=== PATIENT | male | born 2005 | race Caucasian/White ===

== ENCOUNTER → 2024-02-03 08:15 | Outpatient (BNV) | payer OTHER, SELFPAY | PROVIDERS: Visit Provider Psychiatry & Neurology Psychiatry | DX: F34.89 Other specified persistent mood disorders (principal); F60.3 Borderline personality disorder; F84.9 Pervasive developmental disorder, unspecified; F90.1 Attention-deficit hyperactivity disorder, predominantly hyperactive type | CPT/HCPCS: 90792; 99213; 99214; 99499 ==

== ENCOUNTER 2024-02-06 14:11 | Emergency (ER) | payer OTHER, SELFPAY ==
[2024-02-06 14:13] VITALS: BP 119/69; PULSE 83; RESP 18; TEMP 36.8; O2SAT 100; BMI 18.2
--- NOTE | 2024-02-06 14:29 | ED.GENADULT ---
HPI - General Adult General Chief complaint: Psychiatric Symptoms Stated complaint: SI Time Seen by Provider: 02/06/24 14:29 Source: patient Mode of arrival: ambulatory Limitations: no limitations History of Present Illness ED Provider: Annalisa Petit PA-C HPI narrative: Patient is a 18 year old assigned male at with a history of BERNICE presenting to the emergency department today with suicidal ideation and no plan. Patient states that he has been having thoughts of hurting himself but does not have a specific plan at this time. Patient denies any dizziness, lightheadedness, abdominal pain, nausea, vomiting, fever, chills, blurry vision, double vision, loss of vision, chest pain, difficulty breathing, shortness of breath, back pain, night sweats, pain with urination, increased urinary frequency, increased urinary urgency, blood in his urine or stool, syncope or a near syncopal episode, recent trauma or falls, bowel incontinence, bladder incontinence, or any other complaints at this time. Relieving factors: none Exacerbating factors: none Associated symptoms: denies other symptoms Treatments prior to arrival: none Related Data Previous Rx's ?Medication ?Instructions ?Recorded guanfacine 1 mg tablet,extended 1 mg PO QPM #20 tabs 02/03/24 release 24 hr Allergies Allergy/AdvReac Type Severity Reaction Status Date / Time No Known Allergies Allergy Verified 02/06/24 14:16 Review of Systems Constitutional: Constitutional: Reports no additional constitutional complaints, Denies chills, Denies fever(s) and Denies night sweats Eyes: Eyes: Reports no additional eye complaints, Denies blurry vision, Denies change in vision, Denies diplopia, Denies eye discharge, Denies loss of vision and Denies eye pain ENT: Denies dizziness Cardiovascular: Cardiovascular: Reports no additional cardiovascular complaints, Denies chest pain, Denies lightheadedness, Denies Loss of Consciousness and Denies dyspnea Respiratory: Respiratory: Reports no additional respiratory complaints and Denies dyspnea Gastrointestinal: Gastrointestinal: Reports no additional gastrointestinal complaints, Denies abdominal pain, Denies melena, Denies hematochezia, Denies change in bowel habits and Denies change in stool character Genitourinary: Genitourinary: Reports no additional male genitourinary complaints, Denies hematuria, Denies oliguria, Denies difficulty urinating, Denies dysuria, Denies urinary frequency, Denies urinary hesitancy, Denies urinary incontinence and Denies urinary urgency Musculoskeletal: Musculoskeletal: Reports no additional musculoskeletal complaints, Denies numbness and Denies tingling Neurologic: Denies dizziness, Denies loss of vision, Denies numbness and Denies tingling Psychiatric: Psychiatric: Denies homicidal ideation and Reports suicidal ideation Endocrine: Endocrine: Reports no additional endocrine complaints Hematologic/Lymphatic: Hematologic/Lymphatic: Reports no additional hematologic/lymphatic complaints Allergic/Immunologic: Allergic/Immunologic: Reports no additional allergic/immunologic complaints [facility] Past Medical History Attestation statement: The following information was validated with the patient. Source: old records reviewed and nursing notes reviewed Medical History No known health problems Social History Social History Household Members: Family Alcohol intake: never Patient Tobacco Use Status: Never used Tobacco Smoked in Last 30 Days: No Advance Directives: No Advance Directives Information Provided: No Do you have a plan to hurt others: No Plan Physical Exam ED Vital Signs: Vital Signs - 24 hr 02/06/24 14:13 Temperature 98.3 F Pulse Rate 83 Respiratory Rate 18 Blood Pressure 119/69 Pulse Oximetry 100 Oxygen Delivery Method Room Air BMI result Body Mass Index 18.2 Const General: cooperative, no acute distress, alert and awake Nutritional Appearance: well nourished Orientation/consciousness: patient oriented x3 Limitations: no limitations HENMT Head: Yes normal to inspection and Yes atraumatic Ears: hearing grossly normal bilaterally and external ears normal General nose exam: Normal external nose present, no nasal discharge noted and no epistaxis Face and sinus: Yes normal facial exam, No abrasion and No laceration Mouth: Normal oral and palatal mucosa present, no drooling and no muffled voice Eyes General: appearance normal, both eyes and all related structures Periorbital: periorbital findings normal Eyelids: Yes eyelids normal Conjunctivae: conjunctivae normal Pupils: Equal, round and reactive pupils present EOM: EOMs intact bilaterally Neck Neck: Yes normal visual inspection, Yes full ROM and Yes no lymphadenopathy Chest Chest palpation & inspection: normal inspection of the chest Resp Effort & Inspection: normal respiratory effort and able to speak in complete sentences GI Inspection: Yes normal to inspection Neuro General: patient oriented x3 and moves all extremities Cranial nerves: Yes Equal, round and reactive pupils present Cognition (Neuro): normal cognition Extrem General: Yes normal to inspection, Yes full ROM and Yes capillary refill normal Psych Appearance: grossly normal Mental Status: mental status grossly normal Affect: Sad affect present Attitude: Guarded attititude/behavior present Thought content: Suicidality present Medical Decision Making Medical Decision Making MDM Narrative: Patient is a 18 year old assigned male at with a history of BERNICE presenting to the emergency department today with suicidal ideation and no plan. Patient's physical exam was as noted in the physical exam portion of this note. Patient's blood work was unremarkable. Patient's urine showed no acute process. CARE team evaluated the patient who recommended discharge and continuation of his partial hospitalization program. I explained my physical exam findings as well as all test results to the patient. I answered all questions asked by the patient. I stressed the importance of the patient taking his medication as directed (either prescribed or as the over the counter packaging recommends). I stressed the importance of the patient following up with his primary care provider. I stressed the importance of the patient returning to the emergency department immediately if his symptoms were to worsen or if he were to develop any dizziness, shortness of breath, difficulty breathing, chest pain, blurry vision, loss of vision, nausea, vomiting, abdominal pain, fever, chills, back pain, or any other complaints. Patient verbalized agreement and understanding with this treatment plan and discharge. Differential Diagnosis Differential Diagnoses: The differential diagnosis associated with the presentation includes Depression Admission/Observation Consideration of admission/observation: Escalation of care including admission/observation considered Patient would have been admitted to the hospital had his work up had any findings where hospital admission was appropriate and his clinical presentation warranted hospital admission. Consult Healthcare Provider Management of the patient was discussed with: Behavioral Health Provider (spoke with the CARE team as noted in the MDM Rationale portion of this note.) Lab Data [facility] Lab Attestation statement: I reviewed the patient's lab results. My interpretation of these results are in the MDM Rationale portion of this note. 02/06/24 14:26 02/06/24 14:26 Labs: Lab Results 02/06/24 Range/Units 14:26 WBC 9.2 (4.8-10.8) X10*3/uL RBC 4.78 (4.60-5.80) X10*6/uL Hgb 14.8 (14.0-18.0) g/dl Hct 43.0 (42.0-52.0) % MCV 90.0 (80.0-98.0) fL MCH 31.0 (27.0-33.0) pg MCHC 34.4 (31.0-36.0) g/dl RDW 12.2 (11.0-16.0) % Plt Count 256 (160-400) X10*3/uL MPV 10.4 (9.4-12.4) fL Immature Gran % (Auto) 0.3 (0.0-0.4) % Neut % (Auto) 63.2 (45-73) % Lymph % (Auto) 25.6 (20-40) % Lawrence % (Auto) 8.8 (2-11) % Eos % (Auto) 1.6 (0-4) % Baso % (Auto) 0.5 (0-2) % Lymph # (Auto) 2.4 (1.2-4.9) X10*3/uL Lawrence # (Auto) 0.8 (0.1-1.2) X10*3/uL Eos # (Auto) 0.2 (0.0-0.4) X10*3/uL Baso # (Auto) 0.1 (0.0-0.2) X10*3/uL Abs Immat Gran (auto) 0.03 (0.00-0.03) X10*3/uL Absolute Neuts (auto) 5.8 (2.0-8.3) x10*3/uL Absolute Nucleated RBC 0.000 (0.0-0.012) X10*3/uL Nucleated RBC % (auto) 0.0 (0.0-0.2) /100WBC Sodium 141 (135-145) mmol/L Potassium 4.0 (3.3-5.1) mmol/L Chloride 104 (96-108) mmol/L Carbon Dioxide 31 H (22-29) mmol/L Anion Gap 10 L (12-20) BUN 10 (9-16) mg/dL Creatinine 0.86 (0.5-1.4) mg/dL Estim Creat Clear Calc 108.1 Estimated GFR > 60 Random Glucose 81 (60-115) mg/dL Calcium 9.8 (8.4-10.2) mg/dL Total Bilirubin 0.3 (0.0-1.0) mg/dL AST 16 (5-37) U/L ALT 11 (0-40) U/L Alkaline Phosphatase 92 (39-117) U/L Total Protein 7.5 (6.5-8.0) g/dL Albumin 4.5 (3.5-5.0) g/dL Urine Color Yellow Urine Appearance Clear Urine pH 6.5 (5.0-9.0) Ur Specific [place] 1.025 (1.005-1.025) Urine Protein Negative (Neg-Trace) mg/dL Urine Glucose (UA) Negative (Negative) mg/dL Urine Ketones Trace (Negative) mg/dL Urine Blood Negative (Negative) Urine Nitrite Negative (Negative) Ur Leukocyte Esterase Negative (Negative) Discharge Plan Discharge Clinical Impression: Depression Patient Disposition: Home, Self-Care Instructions: Depression (DC) Additional Instructions: Follow up with the partial program as instructed by the CARE team. Follow up with your primary care provider. Return to the emergency department immediately if your symptoms worsen or if you develop any dizziness, shortness of breath, difficulty breathing, chest pain, blurry vision, loss of vision, nausea, vomiting, abdominal pain, fever, chills, back pain, or any other complaints. [facility]: [address], [place] [id number] Walk in hours from 10am - 12pm Open from 10am - 12pm [facility] Crisis Services: [address] [place] [address] Walk in hours from 10am - 12pm Open 23/12 [facility]: [address] [place] [address] [address] [place] [id number] Hours: M-F 8am to 8pm Friday and Friday 9am to 5pm Prescriptions: No Action guanfacine 1 mg tablet extended release 24 hr 1 mg PO QPM Qty: 20 0RF Referrals: Manan Farr MD [Primary Care Provider] - Interventions: [place]-Suicide Risk Severity Scale Last Done: 02/06/24 15:02 Print Language: Mohawk
[2024-02-06 14:30] LABS: MANUAL DIFF FLAG NO
[2024-02-06 14:33] LABS: Appearance Urine Clear; Color Urine Yellow; Glucose Urine UA Negative (Negative); Leukocyte Esterase Urine Negative (Negative); Nitrite Urine Negative (Negative); PH 6.5 (5.0-9.0); Specific Gravity - Urine 1.025 (1.005-1.025); Urine Blood Negative (Negative); Urine Ketones Trace mg/dL (Negative); Urine Protein Negative (Neg-Trace)
[2024-02-06 14:34] LABS: Basophils Absolute Auto 0.1 X10*3/uL (0.0-0.2); Basophils Percent Auto 0.5 % (0-2); Eosinophils Absolute Auto 0.2 X10*3/uL (0.0-0.4); Eosinophils Percent Auto 1.6 % (0-4); Hemoglobin 14.8 g/dl (14.0-18.0); Imm Gran Abs Auto 0.03 X10*3/uL (0.00-0.03); Imm Gran Pct Auto 0.3 % (0.0-0.4); Lymphocytes Absolute Auto 2.4 X10*3/uL (1.2-4.9); Lymphocytes Percent Auto 25.6 % (20-40); Mean Corpuscular HGB Conc 34.4 g/dl (31.0-36.0); Mean Platelet Volume 10.4 fL (9.4-12.4); Monocytes Absolute Auto 0.8 X10*3/uL (0.1-1.2); Monocytes Percent Auto 8.8 % (2-11); Neutrophils Absolute Auto 5.8 x10*3/uL (2.0-8.3); Neutrophils Percent Auto 63.2 % (45-73); Platelet Count 256 X10*3/uL (160-400); Red Blood Count 4.78 X10*6/uL (4.60-5.80); Red Cell Distribution Width 12.2 % (11.0-16.0); White Blood Count 9.2 X10*3/uL (4.8-10.8)
[2024-02-06 14:53] LABS: Alanine Aminotransferase 11 U/L (0-40); Albumin Level 4.5 g/dL (3.5-5.0); Alkaline Phosphatase 92 U/L (39-117); Anion Gap 10 (12-20); Aspartate Amino Transferase 16 U/L (5-37); Bilirubin Total 0.3 mg/dL (0.0-1.0); Blood Urea Nitrogen 10 mg/dL (9-16); Calcium 9.8 mg/dL (8.4-10.2); Carbon Dioxide 31 mmol/L (22-29); Chloride 104 mmol/L (96-108); Creatinine Clr Calc Pharmacy 108.1; Estimated Glomerular Filt Rate > 60; Glucose Random 81 mg/dL (60-115); Sodium 141 mmol/L (135-145); Total Protein 7.5 g/dL (6.5-8.0)
[2024-02-06 15:48] VITALS: BP 119/69; PULSE 83; RESP 18; TEMP 36.8; O2SAT 100
== END 2024-02-06 15:49 | disposition home or self-care (01) ==
PROVIDERS: Emergency Provider Emergency Medicine Emergency Medical Services; PCP Pediatrics
DX: F32.A Depression, unspecified (principal); R45.851 Suicidal ideations; F41.8 Other specified anxiety disorders; F60.3 Borderline personality disorder; F84.9 Pervasive developmental disorder, unspecified; Z86.59 Personal history of other mental and behavioral disorders; Z79.899 Other long term (current) drug therapy
CPT/HCPCS: 36415; 80053; 81003; 85025; 99284; 99285; S9485

== ENCOUNTER 2024-02-16 09:00 | Outpatient (RCR) | payer OTHER, SELFPAY ==
[2024-02-03 09:33] VITALS: BP 103/70; PULSE 91; TEMP 36.9
[2024-02-03 09:36] VITALS: BMI 18.2
--- NOTE | 2024-02-03 10:12 | PC.ADMIT ---
Patient is a 18 year old male who was referred to [facility] by crisis who evaluated him after self presenting to the [facility] office secondary to increased anxiety and depression. According to records patient's boyfriend of 4 months broke up with him thus patient reportedly took pills from his fathers girlfriend and called his boyfriend and the boyfriend notified Erick's parents who took the pills. Patient has a history of separation anxiety. Patient is hopeful that he will be getting back together with his boyfriend. Patient has his two year liberal arts degree and is currently taking nursing classes however does not know what he wants to do career [place]. 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 Patient lives part-time with both his mother and father who are . Patient is alert and oriented x4. Calm and cooperative. His thoughts are clear and logical. He presented with depressed mood and anxious affect. Denied SI. He was given a copy of his safety plan if needed. He is not on any psychotropic medications at this time. Stated in the past he was on a psychotropic medication for a week however could not remember the name of it. Patient stated he has tried marijuana about 4 times and denied any other substance use including alcohol.
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
--- NOTE | 2024-02-05 11:50 | HO.PHP ---
Pt left group 1 at about 10:00 and did not tell staff he was leaving. This t/w reached out to the team via text, but this machine sign writer observed him on the telephone right outside the entrance through the window. He didd not return to group 2. He was called multiple times, messages left. His emergency contact was called twice with no ability to receive voicemails. His mother, Nancy, contacted the program nurse Lauren, about his whereabouts, and provided a bit of historical information on this presentation. She was advised to get a hold of him to contact the program about his status in the program going forward.
--- NOTE | 2024-02-05 11:51 | PC.NURSE ---
Erick left the first group and was seen on his phone outside of the group. Staff went to look for him however he left the program without notifying staff. Staff left messages on Gianluca's voicemail to call us. His mother Nancy called and stated Gianluca contacted her via text and asked her to call us to let us know that he felt too anxious to be in the program and was not able to let staff know that he was leaving the program. He told his mother he was on his way to [place] to visit his boyfriend. His mother stated that Gianluca and his boyfriend would visit with each other often during the summer going to each others homes. She stated she let Luz father, who is a [place] police sergeant, know that Gianluca left to see his boyfriend in [place]. She stated his father has seen his license plate on the highway. His mother stated she thinks it would be helpful if Gianluca stayed in the program. I asked her to speak to Gianluca and ask him if he is planning on continuing the program. She stated she would call him and let us know. She stated he is fixated on the relationship with the boyfriend and has attachment issues. I asked her if he made any suicidal statements to her and she stated he did not.
--- NOTE | 2024-02-05 15:09 | HO.PHP ---
Client's case has been opened and reviewed in team.
--- NOTE | 2024-02-05 15:16 | PC.NURSE ---
Erick's ex-boyfriend who goes to college in [place] called me from college campus and stated that Erick is with him and threatening to kill himself if they can't be together. He stated he did not know what to do. He also stated Erick does not want him to be on the phone right now. I advised him to call or bring Erick to campus police. He agreed and stated he is going to call them now. He also stated he spoke to Erick's parents as well. PHP manager transmission Tuyet Reyes was present during the phone call.
--- NOTE | 2024-02-05 15:29 | PC.NURSE ---
I spoke to Erick's mother who is aware that Erick is with Kaleb his EX-boyfriend and is threatening to kill himself if they can not be together. She stated she had spoke to Kaleb she and also advised him to call campus police for help.
--- NOTE | 2024-02-06 11:22 | HO.PHP ---
After reviewing the treatment plan, Erick asked a question in regards to possibly needing a higher level of support because he is uncertain to if [facility] is going to be able to help him with where he is currently at. [facility] staff member informed Erick that a higher level of support would be inpatient level of care. Erick disclosed that he would be open to going to inpatient but would like to further explore. PHP staff member was receptive and assessed why Erick feels he needs a higher level of care. Erick shared that yesterday was challenging for him, which he wanted to harm himself. PHP staff member asked him what stopped him from acting on his thoughts yesterday. Erick disclosed that he was emotionally exhausted and was too tired to even think of a plan. Erick did express having concerns with the weekend approaching and not having a structured scheduled. [facility] staff member validated his concerns and explored if Erick has any plans or intent. Erick shared that he feels that his father was worried about him doing something to the car but Erick mentioned that he doesn't not want to have a car and he also does not like blood so he would never act on anything such as cutting or anything that involves blood. Erick also voiced that he has had thoughts about hanging himself but doesn't know where he would do that, and he has had thoughts about taking medication but he doesn't want a painful . Erick said therefore he has no plan or intent or means to anything. PHP staff member was receptive and informed him that he would be meeting with Dr. Quintero later in the day and she will further explore if she feels he needs to be assessed by the care team. Erick was receptive. PHP staff member and Erick engaged in conversation around his relationship and how it has been affecting him. Erick talked about how he has separation anxiety and being away from him is challenging and he feels if he gives his ex partner space, then he really is going to want to fully separate. Erick talked about how his anxiety is increasing and how he is losing a sense of control over the situation. PHP staff member and Erick engaged in problem solving around what he can currently control in this moment. Erick voiced that he struggles to identify this because he puts his all into relationship and has lost a sense of identity. PHP staff member engaged in reflective listening and provided Erick with support as needed. Erick was able to return back to group and is awaiting to be seen by Dr. Quintero.
--- NOTE | 2024-02-06 12:20 | P.PNPSP_ITS ---
Subjective Subjective Date of Service: 02/06/24 Reason For Visit: anxiety,depression Interim History: Patient seen for follow-up in light of concerning reports from patient's boyfriend, parents. Patient updated senior technical writer on yesterday's developments which including impulsively leaving program and driving out to see his BF in [place], compelled by fears of abandonment and other relationship anxieties. He spoke openly, earnestly and in great detail about these events. Conveys a high level of emotional instability, high reactivity, and was forthcoming about the emotional neediness and clinginess. He recognizes now that he is calmer today, that the reassurance he was seeking, pleading and demanding from his BF was probably not fair or reasonable, however yesterday in the throws of desperation he made several conditional suicidal statements (threatening to harm himself if they broke up) the BF contacted campus security. Even after they both spoke with security and were (his BF returned to his dorm and patient was encouraged to return home) patient returned to campus an hour later to see BF who did allow him in and had slightly more agreeable parting/closure to their conversation and in fact remained on the phone with patient for the entirety of his drive back home. He had maintained communication with his parents yesterday throughout this ordeal, looking for emotional support and updating them on developments. He says sadly this is how I've always been in relationships...I have a hard time trusting and need constant reassurance which usually ends up being too much of a burden to them . Today he presents as rather bright, hyperthymic (similar to his initial pr esentation with me). He is overly detailed and highly energetic and talkative but is not found to be pressured or disorganized. No FOI/EDITH. Sleep regularly, appetite is fine , energy is stable. He reports his mood as a little sad that we decided to 'take a break' but says he is trying to remain optimistic they will remain together. He denies having any suicidal thoughts and says he regrets that he gets lets things get so blown out of proportion. He recognizes that his behaviors can be cooercive and even manipulative (inge when he is making suicidal threats) but says that in the moment they feel true. He has long-standing issues with mood dysregulation which he sees as almost entirely provoked by external factors (usually relationship stressors) and otherwise denies any history of depressive or manic episodes. Denies any issues with insomnia or high risk taking behaviors outside of his impulsive behaviors driven by desperation for connection and reassurance from a partner. He denies any substance use, no hx of promiscuous behaviors or other activities that would put him unnecessarily in harms way. Nonetheless, given his high level of impulsivity, especially in light of concerning behaviors over the past 24 hours (making suicidal statements yesterday that saida concern from loved ones as well as prompting an assessment by campus security), understandably we are concerned for his safety and feel a crisis evaluation is warranted. I doubt, given his current presentation, that he will be deemed IPLOC however given how easily he is provoked and dysregulated it might be helpful to connect with Crisis and be on their radar should patient have any issues over the weekend. Patient agrees this seems sensible, was readily agreeable to be evaluated in ED this evening, and if he is discharged from the ED and returns home, he plans to take it easy this weekend . He says he wont be going to [facility] he knows he put a lot of stress on his BF and says he and BF agreed to speak by phone on Friday and that he is satisfied with this plan. Medication Compliance: Yes Side effects from medications: No Attending Groups: Yes Review of Systems Acute medical concerns: No Mental Status Exam Mental Status Exam Narrative: Alert, oriented, in no acute distress. Energetic, fidgeting, fully cooperative, engaged and well-related. Good eye contact. Mood a little sad . Affect variable, bright, anxious with minimal range, no lability or irritability noted during our meeting. Speech is rapid, high prosody, normal volume, abundant but not pressured. Expansive, circumstantiality, but coherent, no evidence of thought disorder, no FOI or EDITH. Thought content almost exclusively related to relationship stressors, high emotionality, unstable personality conflicts, feelings of helplessness and poor self esteem issues. Preoccupied with his standing in the relationship. High impulsivity and conditional SI threats, but says he currently denies any feelings of hopelessness or SI. Denies any aggressive ideation or HI. No paranoia or delusional content elicited. Distractible but self redirects and able to attend to conversation. Insight and judgment - fair-good. Diagnostics Vital Signs (24Hr): BMI result Body Mass Index 18.2 Assessment & Plan Assessment & Plan (1) Other specified persistent mood disorders: Status: Acute Code(s): F34.89 - Other specified persistent mood disorders Assessment and Plan: mood dysregulation r/o Cyclothymia vs BPII vs other reactive depression/adjustment disorder r/o mood dysregulation r/t ADHD (2) BERNICE (generalized anxiety disorder): Status: Acute Code(s): F41.1 - Generalized anxiety disorder Assessment and Plan: history of generalized anxiety, social anxiety, separation anxiety and insecure attachment style (likely developmental) (3) Pervasive developmental disorder: Status: Acute Code(s): F84.9 - Pervasive developmental disorder, unspecified Assessment and Plan: Hx of Asperger's Syndrome diagnosed in childhood history more strongly suggestive of ADHD impulsive/hyperactive type (4) Borderline personality disorder: Status: Acute Code(s): F60.3 - Borderline personality disorder Assessment and Plan: r/o hyperthymic temperament vs other temperament/personality traits (dependent) or relational trauma (complex PTSD) Plan patient fully agreeable to be esorted to ED for Crisis evaluation will start ABilify 2 mg qd (will plan to titrate as tolerated) continue guanfacine ER 1 mg QD - BID assess for sleep, consider alternatives if guanfacine inadequate will continue to evaluate for appropriateness of ADHD treatment (hx of PDD with presentation that is more clinically correlative to emotional and attentional dysregulation, and poor impulse control rather (patient's interpersonal relatedness and other social strengths is too intact to meet criteria for ASD, furthermore patient lacks many of the correlates that characterize Aspergers (which now diagnostically falls under ASD per DSM5) - repetitive and/or ritualistic behaivors, monotonous voice and stilted speech style, limited interests, cognitive rigidity, etc) pending lab work patient would likely benefit from DBT Safety plan reviewed will continue to monitor Patient educated on: diagnosis and medication risk/benefits Informed Consent: understands Reason for contiued partial hosp. stay Substantial Risk for: harm to self, inability to function, rapid decompensation and med/psych decompensation Certification I certify that partial hospital treatment is medically necessary due to the symptoms and problems resulting from the patient's mental illness and the failure to treat the patient at the partial hospital level of care would likely result in the patient requiring inpatient psychiatric care which could not be prevented at a less intensive level of care. Total time managing care of this patient today __30__ minutes. Discharge Plan Discharge Attending provider: Sarah Beth Quintero Medications: New guanfacine 1 mg tablet extended release 24 hr 1 mg PO QPM Qty: 20 0RF aripiprazole 2 mg tablet 2 mg PO BEDTIME Qty: 14 0RF Print Language: Rwandan
--- NOTE | 2024-02-06 14:11 | HO.PHP ---
[facility] staff member contacted Erick's mother Nancy to inform her that Erick is being walked down to the Emergency Department for further evaluation. [facility] staff member had left a Voicemail and is awaiting a call back.
--- NOTE | 2024-02-06 14:19 | PC.NURSE ---
Patient is struggling with depression in the context of a break up with his boyfriend. He told staff member Courtney that he has suicidal thoughts, thoughts to overdose on medications, thoughts to hang self, or thoughts to crash his car. He reported no intention or plans of doing this. He reports he does not like pain or blood. Patient visited with his boyfriend yesterday when he decided to leave [facility] and drive his car to [place] to visit boyfriend at [facility]. At that time he was threatening to kill himself stating this to his boyfriend if his boyfriend broke up with him. [employer] got involved as a result. See previous nursing note on 02/06/24. Erick met with Dr Quintero today and was put on a section 12A to be evaluated by crisis. [facility] staff escorted patient to [facility] for evaluation. I spoke to Kamran RN in the [facility] Pod who stated there is room in the pod for Erick. Reviewed above mentioned information with Kamran SHELTON.
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
--- NOTE | 2024-02-10 08:52 | HO.PHP ---
[facility] staff member Lauren, received a voicemail from Erick's mother that was forwarded to [facility] staff member Courtney. The voicemail stated that Erick had a difficult night due to his boyfriend no longer wanting to talk to him anymore. Erick's mother voiced that Erick is currently sleeping. [facility] staff member reached out to Erick's mother, in which a Voicemail was left. [facility] staff member is awaiting a phone call back from Erick's mother.
--- NOTE | 2024-02-10 16:17 | HO.PHP ---
[facility] staff member reached out to Clives mother to gather how Erick has been throughout the remainder of the day since she stated he would not be in attendance to program today. Erick's mother voiced that Erick appears to be fairing better then she expected, especially after Erick's boyfriend recently broke up with him. Erick's mother mentioned when she was at work, she is able to track's Erick's phone and saw he was at the [facility] house. Erick's mother disclosed that she spoke to the father and it appears that they were watching TV. Erick's mother also voiced that when he got up, he took a shower, which he hadn't showered in two days. Erick's mother voiced that Erick is currently home at this time and he was looking for his danielle board and stated that he wanted to pick that back up. Erick's mother reported that he went to the book store as well today to get a book. [facility] staff member was receptive and assessed any safety concerns. Abbey mother denies any safety concerns at this time. PHP staff member explored where Erick will be staying tonight. Erick's mother said he is staying with her. [facility] staff member encouraged the mother to have Erick attend program tomorrow so he is able to get the support needed. Clives mother was in aggrement.
--- NOTE | 2024-02-11 12:37 | HO.PHP ---
At roughly 11:30 report writer met with Armani for about 45 minutes after he expressed a desire to leave programming and go home to sleep. Pt expressed much sadness and distress over his former partner. Pt stated he wanted to go home to sleep so he did not feel sad ot thinkof him. Pt denied SI currently, but acknowledged his obsessive thoughts about the breakup and to speak with his partner are not healthy and feels he is having a hard time stopping himself from thinking about him. Stated distractions work only temporarily. Pt stated his current symptoms were of restlessness and felt it was hard to stay mentally engaged in group. Pt and report writer explored ways that may help, pt identified having fidgets as helpful but did not have any today, Armani also felt movement helps and touch, as well as reading to distract his mind. Pt and report writer discussed some goals he would like to work towards to improve how he handles his emotions and interactions with his ex, including work on being a better listener, limiting the number of times he messages his ex and limiting what he says in the messages. Pt reports he isaware that his ex does not want contact but shared even though he wants to respect his ex's boundary, feels he is not capable of not texting because he misses him very much but agreed to try to limit how much. Pt agreed he would try to increase his activity to reduce his obsessive thoughts and to stop them from resulting in impulsive behavior. Pt forthcoming, expressed a desire to improve and get control of his emotions. Pt was asked not to leave PHP without checking in with staff first, pt agreed. Pt also agreed to speak with the doctor tomorrow about his inability to focus. Pt would like to explore if he may have ADHD.
--- NOTE | 2024-02-12 21:52 | HO.PHPPROGNO ---
Subjective Subjective Date of Service: 02/12/24 Reason For Visit: anxiety,depression Interim History: Patient seen for follow-up. He reports yesterday was rough on account of relationship stressors, but says today is better . He continues with preoccupation with his relationship. He has been at 4 mg of ABilify since Friday. He also continues on 1 mg guanfacine ER in the AM. He denies any adverse effects. He does not notice any considerable change thus far. He has been medication compliant and denies any issues with alcohol or substance use. He reports his mood as currently good. He is bright, energetic without irritability or lability. Denies any hopelessness or SI, but admits yesterday was bad, I was impulsive again . Said he starting calling and texting heavily especially when he did not hear back immediately from his boyfriend, which lead to me to crashing and feeling suicidal . He admits these highs and lows happen almost everyday . These dramatic swings in his mood completely correlate to his interactions with his BF. When he perceives things are in a good place, he is happy/joyous but any dissonance or conflict in the relationship (or perceived slight) he is immediate reactive. I go from feeling good to instantly depressed and needy when I cant find him or feel he might be trying to push me away . He recognizes this is not healthy but says I've been like this my whole life , He initially comes across as somewhat flippant, cavalier and jokingly self-deprecating about his neediness/attachment issues but admits his obsessiveness and neediness does lead to a whole lot of relationship dysfunction and codependency. He asks if he can be hospitalized to the inpatient unit, an idea he says came up during a conversation with his boyfriend last night; thinking that it might be helpful if he is locked up somewhere for a while so I can adjust (to his boyfriend being away at school) and implies that hospitalization would help keep him occupied. He denies any thoughts of harming himself or others. No SI, HI, AH, VH. I advise him that he does not meet IPLOC, but in fact would likely benefit more from supervisor intermediates DBT and would be a more appropriate disposition for him at this time (rather than IP). We reviewed characteristics of Borderline Personality Disorder - which patient reportedly was unfamiliar with, but upon reviewing says this disorder and the discussion about it really resonates with him. He strongly relates to these interpersonal and intrapsychic struggles and feels this diagnostically makes a lot of sense. Medication Compliance: Yes Side effects from medications: No Attending Groups: Yes Review of Systems Acute medical concerns: No Mental Status Exam Mental Status Exam Narrative: Alert, oriented, in no acute distress. Energetic, fidgeting, fully cooperative, engaged and well-related. Good eye contact. Mood is good , high reactivity. Affect bright, some anxiety with minimal lability or irritability noted. Speech is normal volume. Expansive, circumstantiality, but coherent, no evidence of thought disorder, no FOI or DEITH. Thought content almost exclusively related to relationship stressors, high emotionality, unstable personality conflicts, feelings of helplessness and poor self esteem issues. Preoccupied with his standing in the relationship. High impulsivity. Currently denies any feelings of hopelessness or SI. Denies any aggressive ideation or HI. No paranoia or delusional content elicited. Distractible but self redirects and able to attend to conversation. Insight and judgment - fair-good. Diagnostics Vital Signs (24Hr): BMI result Body Mass Index 18.2 Assessment & Plan Assessment & Plan (1) Other specified persistent mood disorders: Status: Acute Code(s): F34.89 - Other specified persistent mood disorders Assessment and Plan: namely emotional reactivity, mood instability r/o mood dysregulation r/t ADHD r/o Cyclothymia vs BPII (2) Borderline personality disorder: Status: Acute Code(s): F60.3 - Borderline personality disorder Assessment and Plan: r/o hyperthymic temperament vs other temperament/personality traits (dependent) or relational trauma (complex PTSD) (3) Pervasive developmental disorder: Status: Acute Code(s): F84.9 - Pervasive developmental disorder, unspecified Assessment and Plan: developmental hx of childhood separation anxiety and insecure attachment style (?RAD) Hx of Asperger's Syndrome diagnosed age 10 (appears to have outgrown dx --> ?masking --> anxiety) history and clinical presentation strongly suggestive of ADHD especially impulsive/hyperactive type (4) ADHD, predominantly hyperactive-impulsive subtype: Status: Acute Code(s): F90.1 - Attention-deficit hyperactivity disorder, predominantly hyperactive type Plan bump up Abilify from 4 to 5 mg qd start oxcarbazepine 150 mg BID (will titrate to 300 mg BID as tolerated) continue guanfacine ER 1 mg qam will continue to evaluate for appropriateness of ADHD treatment once mood reactivity/impulsivity better controlled with AED/NL routine lab work reviewed patient would likely benefit from DBT Safety plan reviewed will continue to monitor Patient educated on: diagnosis, medication risk/benefits, therapeutic strategies (DBT referral) and other Informed Consent: understands Reason for contiued partial hosp. stay Substantial Risk for: rapid decompensation and med/psych decompensation Certification I certify that partial hospital treatment is medically necessary due to the symptoms and problems resulting from the patient's mental illness and the failure to treat the patient at the partial hospital level of care would likely result in the patient requiring inpatient psychiatric care which could not be prevented at a less intensive level of care. Total time managing care of this patient today _45___ minutes. Discharge Plan Discharge Attending provider: Sarah Beth Quintero Medications: New guanfacine 1 mg tablet extended release 24 hr 1 mg PO QPM Qty: 20 0RF aripiprazole 2 mg tablet 2 mg PO BEDTIME Qty: 14 0RF oxcarbazepine 300 mg tablet See Rx Instructions .ROUTE .COMPLEX Qty: 30 0RF Rx Instructions: start 1/2 tablet po BID for 4 days then increase to 1 tablet po BID aripiprazole 5 mg tablet 5 mg PO DAILY Qty: 30 0RF guanfacine 2 mg tablet extended release 24 hr 2 mg PO DAILY Qty: 30 0RF Print Language: Frisian
--- NOTE | 2024-02-13 14:09 | HO.PHPPROGNO ---
Subjective Subjective Date of Service: 02/13/24 Reason For Visit: anxiety,depression Interim History: Patient requesting to be seen. Says he spent some time reading about Borderline Personality Disorder as well as discussing this with his parents. I told my boyfriend I have Borderline Personality Disorder. It makes rico much sense . He asks to talk more about DBT and says he would be really interested in a referral for DBT. He does have an intake appointment on Friday for [facility]. He reports having a good night last night because I got to talk to Emmett He is tolerating medication changes. Mood is tired but pretty good, just get anxious . He is sleeping better feeling more tired in the AM but the feeling abates after an hour. Anxiety persists during the day, as well as inattentiveness and is agreeable to also increasing the dose of guanfacine Er in the AM. Denies any SI, HI, AH, VH since night before last. Medication Compliance: Yes Side effects from medications: No Attending Groups: Yes Review of Systems Acute medical concerns: No Mental Status Exam Mental Status Exam Narrative: Alert, oriented, in no acute distress. Good eye contact. Reports labile/reactive mood. Continues to present with bright affect. energetic, some anxiety with nol lability or irritability noted during session. Speech is normal. No evidence of thought disorder, no FOI or EDITH. Thought content related to relationship stressors, impulsivity, high emotionality. Currently denies any feelings of hopelessness or SI. Denies any aggressive ideation or HI. No paranoia or delusional content elicited. Distractible but self-redirects and able to attend to conversation. Insight and judgment fair but adequate. 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 related to impulsive-type ADHD and emotionally unstable Borderline Personality (3) ADHD, predominantly hyperactive-impulsive subtype: Status: Acute Code(s): F90.1 - Attention-deficit hyperactivity disorder, predominantly hyperactive type (4) Pervasive developmental disorder: Status: Acute Code(s): F84.9 - Pervasive developmental disorder, unspecified Assessment and Plan: developmental hx of childhood separation anxiety and insecure attachment style (?RAD) Hx of Asperger's Syndrome diagnosed age 10 (appears to have outgrown dx --> ?masking --> anxiety) history and clinical presentation strongly suggestive of ADHD especially impulsive/hyperactive type Plan continue Abilify 5 mg qd continue oxcarbazepine 150 mg BID (will titrate to 300 mg BID as tolerated over weekend) increase guanfacine ER to 2 mg qam may consider trial of low dose Vyvanse if mood/impulse control better regulated with mood stabilizers will continue to evaluate for appropriateness of ADHD treatment once mood reactivity/impulsivity better controlled with AED/NL routine lab work reviewed patient would likely benefit from DBT Safety plan reviewed will continue to monitor Patient educated on: diagnosis and medication risk/benefits Informed Consent: understands Reason for contiued partial hosp. stay Substantial Risk for: inability to function, rapid decompensation and med/psych decompensation Certification I certify that partial hospital treatment is medically necessary due to the symptoms and problems resulting from the patient's mental illness and the failure to treat the patient at the partial hospital level of care would likely result in the patient requiring inpatient psychiatric care which could not be prevented at a less intensive level of care. Total time managing care of this patient today __30__ minutes. Discharge Plan Discharge Attending provider: Sarah Beth Quintero Medications: New guanfacine 1 mg tablet extended release 24 hr 1 mg PO QPM Qty: 20 0RF aripiprazole 2 mg tablet 2 mg PO BEDTIME Qty: 14 0RF oxcarbazepine 300 mg tablet See Rx Instructions .ROUTE .COMPLEX Qty: 30 0RF Rx Instructions: start 1/2 tablet po BID for 4 days then increase to 1 tablet po BID aripiprazole 5 mg tablet 5 mg PO DAILY Qty: 30 0RF guanfacine 2 mg tablet extended release 24 hr 2 mg PO DAILY Qty: 30 0RF Print Language: Gibraltarian
--- NOTE | 2024-02-16 09:55 | HO.PHP ---
Addendum entered by Courtney Delaney 02/17/24 09:22: When [facility] staff member completed the PHQ-9 with Erick, she observed that he had gone up in severity for depression. PHP staff member explored if he would like to continue in the program opposed to discharging today. Erick voiced that he did not find the program to be very helpful and is looking into another program. PHP staff member explored what type of program he is seeking but Erick was unable to note what type of service he was seeking. Original Note: [facility] staff member met with Erick to complete the discharge portion of the PHP clinician. PHP staff member gathered appointment dates and times for his OP therapy and med management. Along with school and work information. [facility] staff member also completed the PHQ-9. While completing the PHQ-9 the last statement asks you to rater on a scale of 0 to 3 if you are having thoughts that you would be better off or hurting yourself in some way. Erick rated that a 3 nearly every day. PHP staff member further assessed safety. Erick disclosed he currently has thoughts but no plan or intent. Erick noted he was close to acting on his thoughts yesterday but his ex boyfriend called him and he was able to regulate. [facility] staff again asked if he has any current SI, plan or intent. Erick reported he has SI thoughts without a plan or intent. Erick disclosed the thoughts are just feeling hopeless at times. Erick mentioned when he has had plans in the past it was to take whatever pills he has access to. PHP staff member asked him what stops him from acting on those plans. Erick mentioned that there is fear and he has slight hope that things will get better. PHP staff member was receptive and provided him with a list of crisis numbers to contact if he does develop a plan or intent. Erick was in agreement that he would call crisis but he does not want to come back to the ED for an evaluation and get a bill. Erick also mentioned that he informs his parents if he does have SI, plan or intent. PHP staff member was in agreement. Erick reported no safety concerns at the time of this meeting and returned to group.
--- NOTE | 2024-02-16 10:50 | HO.PHP ---
[facility] staff member received a phone call from Erick's mother, Nancy, exploring if Erick was in the program. PHP staff member stated that he is in the program and she had just met with Erick not too long ago. Nancy voiced that Erick has been sending her text messages stating that he is going to leave the program and drive his car off a bridge. PHP staff member disclosed to his mother that he was not disclosing any concerns at the time of meeting with him and noted that the med provider will be meeting with him at 11 AM. Nancy was receptive. PHP staff member went to group room A where Erick was supposed to be in attendance, but Erick was not within the group setting. PHP staff member then walked around the [place] to explore if he was in the parking lot, sitting on a bench, or in front of the building. PHP staff member was unsuccessful with accessing Erick. PHP staff member then reached out to Erick via telephone, in which he did not answer. PHP staff member informed him that if he does not return her phone call, she will have to reach out to his emergency contact and then the local police. Erick never returned the PHP staff members phone call. [facility] staff member followed up with Erick's mother around 11:00 AM, in which she was able to locate him through a tracking device on her phone. Nancy disclosed that she can see he was just on [address] and went to [address] heading to his father's house in [place], [place]. Erick mother voiced that he is making these threats because he would like his mother to have his ex boyfriend call him. Erick's mother reported that he is making statements if you care about me, you will have him call or I will kill myself. PHP staff member explored if she can contact Erick while the PHP staff member calls the police department to get an individual to do a wellness check. Nancy was in agreement and voiced that Erick is driving without his license at this time because he lost his wallet. [facility] staff member was receptive and reiterated that she will be calling the police to make sure he is safe. Nancy was in agreement. [facility] staff member contacted the [place] Police department around 11:12 AM and spoke to Mariana. The dispatcher collected information around where he is heading to and the address was provided, the dispatcher did explore if we were aware of what type of car Erick drives but [facility] staff member was unable to note since Erick recently got a new car. [facility] staff member provided Mariana with the mothers phone number since he was texting her that he was going to drive his car off a bridge. Mariana disclosed that they will dispatch a team out to that location and follow up with the mother. [facility] staff member did ask if they can contact her back to let her know of the outcome. They disclosed that they would. [facility] staff member is awaiting a call back.
--- NOTE | 2024-02-16 11:45 | HO.PHP ---
[facility] staff member received a phone call from through [facility] in [place]. JR was exploring the situation that had occurred and disclosed that Erick is stating he does not want to have to go to the ED again to get evaluated and would like for a staff member to pick him up and bring him to a program. JR asked if he would be able to return to our program today. [facility] staff member informed JR that Erick left our program today and was texting his mother that he was going to drive off a bridge. [facility] staff member also voiced she is uncertain to what type of program Erick is seeking at this time and stated that she feels that inpatient level of care is a higher support then what we can offer to him at this point and suggested he gets further evaluated. JR voiced that it looks like he will have to go to the hospital then. [facility] staff member was in agreement. JR asked [facility] staff member for her support and feedback.
--- NOTE | 2024-02-16 14:30 | HO.PHP ---
[facility] staff member followed up with Erick's mother, Nancy, to explore what the outcome was to having the wellness check completed. Nancy disclosed that the police informed her that they will be sending out a metalworker with their team to evaluate Erick. Nancy stated she is uncertain to what came of the situation since Erick is currently home with the father. Nancy stated that Erick knows what he needs to say in order for him to not have to go into inpatient level of care. Nancy voiced that Erick is very angry with her at this time for contacting the police. Nancy disclosed that this is a pattern when Erick goes through a break up, he often will display an increase in SI. Nancy noted that Erick's ex boyfriend made it clear that this is no longer going to work out. Nancy lastly disclosed he also doesn't want to go into inpatient level of care because he doesn't want to lose his phone. Nancy mentioned that Erick said Dr. Quintero made a suggestion around a group but she can't recall what it was. [facility] staff member informed Nancy that would be the full DBT group, in which we called today. Nancy was receptive. Nancy voiced that she just received a text message from Erick's father stating that they will be putting him inpatient today at 4 PM on [facility]. [facility] staff member explored what program that is but Nancy was unaware at the time. Nancy did state she would contact us back with any further information. PHP staff member was receptive.
--- NOTE | 2024-02-16 14:41 | PC.NURSE ---
At 1418 called [facility] crisis spoke with Jenny who reported that Erick had been seen by Ryan Tesfaye, but that there was no updated disposition on him.
--- NOTE | 2024-02-17 09:24 | HO.PHP ---
[facility] staff member followed up with Erick's mother who disclosed that Erick is inpatient on [facility]. [facility] staff member explored if it is respite or inpatient. Erick's mother, Nancy was uncertain. Nancy disclosed that it is not a locked down facility, it is voluntary, he is allowed to have his phone, and he is staying over night. [facility] staff member was receptive. Nancy did voice that she hopes he does not leave the program voluntarily because he does not have a car and it is not a good area. [facility] staff member was receptive and informed her when Erick steps down from that service setting, he can contact our program for a reassessment. Nancy was receptive.
--- NOTE | 2024-02-25 15:24 | HO.PHP ---
PHP staff member received a voicemail from Erick seeking support around what DBT is. [facility] staff member contacted Erick back to provide him with the information for the full DBT group through [facility]. PHP staff member is awaiting a call back from Erick.
--- NOTE | 2024-03-10 10:18 | P.EN_ITS ---
Event Note Date of Service: 03/10/24 Event Note: Returned call to patient who was requesting refills on his medications. He missed his new provider appointment last week because he had gone to respite. He continues on guanfacine ER 2 mg in AM, ABilify 5 mg, oxcarbazapine 150 mg BID (he did not increase from 1/2 tablets to whole tablets because he did not complete PH program and did not know when he was supposed to. Nor did he start yet on the additional guanfacine ER 1 mg. We also did not start him on Vyvanse. He is compliant with medications. Had initially been really tired by the mood stabilizers, but no longer having issues. His mood is still emotionally reactive/dysregulated and poor impulse control when provoked by relationship stressors. Otherwise he says his mood is actually pretty good He denies any SI, HI, AH, VH. His mother has been managing and holding onto his medications. He has spoken with Alec Connolly regarding DBT program and was told he may be starting March 23. He is not sure if he will be getting a provider through there. I encourage him to inquire and if not he should reschedule his missed appointment at [facility]. For now I will send refills for 30 days, but if will need to secure a provider appointment in the meantime, especially if that appointment is >30 days from today. In which case he will be needing refills from me for another month (i.e he will need to have an appointment scheduled and provide us that date in order to bridge his medications until that appointment). Abilify 5 mg BID (split 10 mg tablet) Trileptal 300 mg QAM Trileptal 300 mg QHS x 2-4 days, then increase to 600 mg QHS guanfacine ER 2 mg qAM Vyvanse 10 mg qAM (wait until Trileptal titrated) guanfacine ER 1 mg qPM referred to DBT - pending start 03/23 Time Spent With Patient Time: Total time managing care of this patient today _20___ minutes.
--- NOTE | 2024-03-16 05:12 | P.EN_ITS ---
Event Note Date of Service: 03/17/24 Event Note: Patient called to check in on status of Vyvanse as he still has not received from pharmacy. Spoke with pharmacy, lisdexamfetamine is out of stock, not sure when they will get back in stock. Pharmacist suggest trying to order brand name Vyvanse as insurance apparently is covering because of shortages. In the meantime, patient has been working and is currently on break at work. 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 Sleep/appetite/energy intact. Mood is good today. No major events in interim, although still dealing with a lot of drama and emotional reactivity and impulsivity related to relationship stressors. Currently his BF/exBF is taking a break from speaking with him. He says he still has impulsive urges and will start calling him repeatedly blowing up BF's cell when he feels needy and wants to talk to him. WHen I get an idea in my head I just want to do it . He still has emotional ups and downs (completely related to ups and downs of relationship) If not for that (relationship) I'd be peachy . He has been taking Abilify now at 5 mg and Trileptal 300/600mg. He denies any adverse effects. He still reports being obsessive, impulsive, and distractible but less distraught and has been keeping it together he hasn't had any major disruptions or breakdowns (eg driving out to [place]). He has appointment with outpatient provider next Friday. Script sent over joel leal. Will see if insurance will cover. Time Spent With Patient Time: Total time managing care of this patient today _25___ minutes.
--- NOTE | 2024-04-02 08:37 | PM.EVENT ---
Event Note Date of Service: 04/02/24 Event Note: Patient called requesting refills on ABilify 2 mg, guanfacine and Vyvanse. He has been more steady, less emotional reactivity, less impulsivity. No major events in the interim. Mood though is still on the low side. Vyvanse was initially helpful with feeling calmer and more presents but did not last long. He suspects he has gotten used to 10 mg. He has not met with a provider yet but says that he has met with Alec Connolly who is coordinating his treatment and getting enrolled in DBT as well as setting him up with a therapist and provider. He will be meeting with therapist in next 2 weeks he was told, and then he should get a provider appointment. He agrees to call back [facility] with his appointments dates. For now will refill guanfacine and Abilify and will send Wellbutrin for depression, ADHD. Hold Vyvanse for now. Will be running out of his other meds - oxcarbazepine, Abilify 5 etc in the next 2 weeks so will likely be calling here for refills. He will need to give us provider appointment date by then. Time Spent With Patient Time: Total time managing care of this patient today __20__ minutes.
--- NOTE | 2024-04-12 23:22 | PM.EVENT ---
Event Note Date of Service: 04/12/24 Event Note: Patient had left a message requesting refills on the guanfacine which he is out of. In fact his mother had also reached out to this medical technical writer to also ask for refills as she has been managing his medications, which he has been taken regularly. Erick reports he is overall contiues to do well with current regime of ABilify, Trileptal, guanfacine. We are currently holding Vyvanse while he starts on Wellbutrin which he says has made an appreciable difference in depressive symptoms. He is agreeable to continue on current doses until he meets with new provider. Erick has been meeting regularly with Alec Connolly and has his intake today to start the DBT program and will be meeting his therapist. Reportedly Alec recommended that Erick see a provider at their facility, rather than start with a provider elsewhere, and told Erick he should expect to get his provider appointment once he has had his intake appointment for therapy. Erick is doing well with guanfacine ER 2 mg in AM and ER 1 mg q in evening. He feels the 2 mg is a little more noticeable than 1 mg which he can barely notice. He denies any adverse effects, he feels he has room for improvement and would like to increase the dose. However it is a week early to fill the 1 mg tabs of guanfacine script, (since we had been titrating with 1mg tabs). For now I will send over guanfacine ER 3 mg tablets, he may consider splitting into 1.5 BID if better than 3 mg daily dose, and then could return to 2mg/1mg once he is due. He reports mood improving with Welbutrin SR 100 mg. Recommend conitnuing for a few more week for full optimization of dose before considering further increase vs reinstating Vyvanse (along with WB) to more fully treat high impulsivity, hyperactivity (I suggest at some point if he returns to taking Vyvanse he should regularly take at least 2 days off a week from stimulant. continue WB SR 100 mg qam continue ABilify 10 mg qd (split 5 mg BID) continue Trileptal 600 mg BID continue guanfacine ER at 3 mg/d (he has been splitting as 2/1 but currently will trial as 1.5 mg BID or once daily dosing of 3 mg) If 3 mg better, he could discuss further titration to 4 mg/day (split /) if tolerated and VSS Time Spent With Patient Time: Total time managing care of this patient today __20__ minutes.
== END 2024-02-16 23:59 | disposition home or self-care (01) ==
LOC: HO.PHPA 09:00
PROVIDERS: Visit Provider Psychiatry & Neurology Psychiatry
DX: F41.1 Generalized anxiety disorder (principal); F84.5 Asperger's syndrome; F32.89 Other specified depressive episodes
CPT/HCPCS: 90791; 90853